=== PATIENT | female | born 1970 | race Caucasian/White ===

== ENCOUNTER 2017-05-17 17:07 | Inpatient (IN) | payer OTHER ==
[~2017-05-17] VITALS: Ht 157.5 cm; Wt 46.5 kg
--- NOTE | ~2017-05-17 | EKG ---
[address] [address] ELECTROCARDIOGRAM REPORT Name: ITZEL RODRIGEZ Room #: 543-P ADM IN M.R.#: [id number] Admission: 05/17/17 Attend Phys: Alberto Eldridge MD Discharge: Date of : 68 Report #: [id number] THIS REPORT FOR: //name// [facility] ED Test Date: 2017-05-17 Test Time: 17:43:15 Pat Name: ITZEL RODRIGEZ Department: Room: [facility] Gender: F Deli Cook: Lupe ROWELL : 1970 Requested By: Marilee Chávez Order Number: [id number] MD: Dominik Patel Measurements Intervals [place] Rate: 103 P: 51 [place]: 146 QRS: 43 QRSD: 78 T: QT: 319 QTc: 418 Interpretive Statements Sinus tachycardia Nonspecific T abnrm, anterolateral leads Compared to ECG 09/27/2015 17:23:53 Nonspecific change in the ST and T-wave segments Electronically Signed On 05-18-2017 10:10:27 CDT by Dominik Patel [email or web address] <ELECTRONICALLY SIGNED> By: Dominik Patel MD, [facility] 05/18/17 1010 1743 1743 Dominik Patel MD, [facility] /EPI
[~2017-05-17 17:07] MED LIST: ADDERALL 30 MG30 MG PO; ANTIVERT25 M1 PO; ATIVAN2 MG; ATIVAN2 MG PO; CABERGOLINE 0.0.5 M1 PO; CLONAZEPAM 1 MG1 M1; CLONAZEPAM 1 MG1 M1 PO; GABAPENTIN100 MG; LATUDA120 MG PO; LATUDA80 MG PO; LEXAPRO20 MG PO; SEROQUEL 50 MG50 MG PO; SEROQUEL XR150 MG; TOPAMAX 100 MG100 MG PO; ULTRAM ER100 MG PO; VISTARIL 25 MG25 M1 PO; VYVANSE70 MG PO
[2017-05-17 17:08] VITALS: BP 123/84
[2017-05-17 17:34] LABS: ABSOLUTE NEUTROPHILS 3.2 thou/uL (1.4-8.2); BASOPHILS 0.4 % (0.0-2.0); EOSINOPHILS 0.2 % (0.0-3.0); HEMATOCRIT 40.9 % (37.0-47.0); HEMOGLOBIN 14.1 gm/dL (12.0-15.0); LYMPHOCYTES 28.9 % (24.0-44.0); MCH 31.3 pg (26.0-34.0); MCHC 34.5 g/dL (28.0-37.0); MCV 90.9 fL (80.0-100.0); MONOCYTES 6.1 % (1.0-8.0); PLATELET COUNT 200 thou/uL (150-400); POLYS 64.4 % (36.0-66.0); RDW 12.8 % (10.5-14.5); WBC 4.9 thou/uL (4.0-11.0)
[2017-05-17 17:36] LABS: MANUAL DIFF NO
[2017-05-17 17:42] LABS: ANION GAP 11 mmol/L (7-16); BUN 4 mg/dL (7-18); CALCIUM 9.9 mg/dL (8.5-10.1); CHLORIDE 99 mmol/L (98-107); CO2 24 mmol/L (21-32); CREATININE 0.7 mg/dL (0.6-1.0); GLUCOSE 142 mg/dL (74-106); POTASSIUM 3.5 mmol/L (3.5-5.1); SODIUM 134 mmol/L (136-145)
[2017-05-17 17:49] LABS: ALBUMIN 4.6 g/dL (3.4-5.0); ALKALINE PHOSPHATASE 43 U/L (46-116); SGOT 23 U/L (15-37); SGPT 19 U/L (30-65); TOTAL BILIRUBIN 0.5 mg/dL (<0.1-1.0); TROPONIN-I < 0.04 ng/mL (<0.04-0.07)
[2017-05-17 18:54] LABS: URINE BILIRUBIN NEGATIVE (Negative); URINE BLOOD NEGATIVE (Negative); URINE COLOR YELLOW; URINE GLUCOSE-RANDOM* NEGATIVE (Negative); URINE KETONES NEGATIVE (Negative); URINE NITRITE NEGATIVE (Negative); URINE PROTEIN (DIPSTICK) NEGATIVE (Negative); URINE SPECIFIC GRAVITY <= 1.005 (1.003-1.035); URINE UROBILINOGEN 0.2 E.U./dl (0.2-1.0)
[2017-05-17] MEDS ORDERED: IRON325 PO (19:11)
[2017-05-17] MEDS ORDERED: MIRALAX17 GM PO (19:13)
[2017-05-17] MEDS ORDERED: IMITREX100 MG PO (19:14)
[2017-05-17] MEDS ORDERED: PRISTIQ50 M1 PO (19:15)
[2017-05-17] MEDS ORDERED: PROTONIX40 M4 PO (19:15)
[2017-05-17] MEDS ORDERED: PHENERGAN 25 MG25 M1 PO (19:17)
[2017-05-17] MEDS ORDERED: TRAZODONE 150150 M1 PO (19:52)
[2017-05-17] MEDS ORDERED: RESTORIL30 MG PO (19:53)
[2017-05-17 19:54] VITALS: BP 112/79
[2017-05-17 20:10] VITALS: BP 114/79
[2017-05-18 01:12] LABS: AMP/METHAMP POSITIVE (Negative); BARBITURATES Negative (Negative); BENZODIAZEPINES POSITIVE (Negative); COCAINE Negative (Negative); METHADONE Negative (Negative); OPIATES Negative (Negative); PCP Negative (Negative); THC Negative (Negative)
[2017-05-18 03:14] VITALS: BP 118/73
[2017-05-18 07:34] VITALS: BP 104/64
[2017-05-18 16:10] VITALS: BP 95/55
[2017-05-18] MEDS ORDERED: LATUDA80 MG PO (18:35)
[2017-05-18 19:49] VITALS: BP 96/64
[2017-05-19 05:18] VITALS: BP 83/48
[2017-05-19 07:35] VITALS: BP 90/44
[2017-05-19 11:50] VITALS: BP 103/65
[2017-05-19 15:50] VITALS: BP 120/74
[2017-05-19 19:28] VITALS: BP 114/61
[2017-05-20 05:17] LABS: CALCIUM 8.9 mg/dL (8.5-10.1); CREATININE 0.6 mg/dL (0.6-1.0); POTASSIUM 3.9 mmol/L (3.5-5.1)
[2017-05-20 07:40] VITALS: BP 108/67
[2017-05-20] MEDS ORDERED: DULCOLAX5 MG PO (11:54)
[2017-05-20] MEDS ORDERED: CITRATE OF MAG300 ML PO (11:56)
[2017-05-20 12:04] VITALS: BP 108/67
== END 2017-05-20 14:25 | disposition home or self-care (01) | DRG 389 ==
LOC: ER 17:07 → 5S 18:59 → EROBS 18:59 → 5S 19:54
PROVIDERS: Internal Medicine Endocrinology, Diabetes & Metabolism; Nurse Practitioner Acute Care; Nurse Practitioner Family
DX: K56.60 Unspecified intestinal obstruction (principal); E87.1 Hypo-osmolality and hyponatremia; K20.9 Esophagitis, unspecified; K56.7 Ileus, unspecified; K59.09 Other constipation; F41.8 Other specified anxiety disorders; G47.00 Insomnia, unspecified; F31.9 Bipolar disorder, unspecified; G89.29 Other chronic pain; G43.909 Migraine, unspecified, not intractable, without status migrainosus; F90.9 Attention-deficit hyperactivity disorder, unspecified type; Z79.899 Other long term (current) drug therapy; Z90.710 Acquired absence of both cervix and uterus; Z88.6 Allergy status to analgesic agent; Z91.14 Patient's other noncompliance with medication regimen; Z90.49 Acquired absence of other specified parts of digestive tract
CPT/HCPCS: 10086

== ENCOUNTER 2017-05-24 11:37 | Emergency (ER) | payer OTHER ==
[~2017-05-24] VITALS: Ht 157.5 cm; Wt 47.6 kg
[~2017-05-24 11:37] MED LIST changes: +CITRATE OF MAG300 ML PO; +DULCOLAX5 MG PO; +IMITREX100 MG PO; +IRON325 PO; +MIRALAX17 GM PO; +PHENERGAN 25 MG25 M1 PO; +PRISTIQ50 M1 PO; +PROTONIX40 M4 PO; +RESTORIL30 MG PO; +TRAZODONE 150150 M1 PO
[2017-05-24 12:24] LABS: URINE BILIRUBIN NEGATIVE (Negative); URINE BLOOD NEGATIVE (Negative); URINE COLOR YELLOW; URINE GLUCOSE-RANDOM* NEGATIVE (Negative); URINE KETONES NEGATIVE (Negative); URINE LEUKOCYTES-REFLEX NEGATIVE (Negative); URINE PROTEIN (DIPSTICK) NEGATIVE (Negative); URINE SPECIFIC GRAVITY <= 1.005 (1.003-1.035); URINE UROBILINOGEN 0.2 E.U./dl (0.2-1.0)
[2017-05-24 12:25] LABS: ABSOLUTE NEUTROPHILS 1.6 thou/uL (1.4-8.2); BASOPHILS 0.8 % (0.0-2.0); EOSINOPHILS 1.6 % (0.0-3.0); HEMATOCRIT 43.1 % (37.0-47.0); HEMOGLOBIN 14.7 gm/dL (12.0-15.0); LYMPHOCYTES 42.4 % (24.0-44.0); MCH 31.3 pg (26.0-34.0); MCV 92.1 fL (80.0-100.0); MONOCYTES 6.9 % (1.0-8.0); PLATELET COUNT 211 thou/uL (150-400); POLYS 48.3 % (36.0-66.0); RBC 4.68 mil/uL (4.20-5.00); RDW 13.4 % (10.5-14.5); WBC 3.4 thou/uL (4.0-11.0)
[2017-05-24 12:26] LABS: MANUAL DIFF NO
[2017-05-24 12:30] LABS: CREATININE 0.8 mg/dL (0.6-1.0); POTASSIUM 4.3 mmol/L (3.5-5.1)
[2017-05-24 12:34] LABS: ALBUMIN 4.1 g/dL (3.4-5.0); TOTAL BILIRUBIN 0.5 mg/dL (<0.1-1.0); TOTAL PROTEIN 6.8 g/dL (6.4-8.2)
== END 2017-05-24 14:58 | disposition home or self-care (01) ==
LOC: ER 11:37
PROVIDERS: Emergency Medicine
DX: G89.29 Other chronic pain (principal); R10.9 Unspecified abdominal pain; F41.9 Anxiety disorder, unspecified; F31.9 Bipolar disorder, unspecified; Z90.710 Acquired absence of both cervix and uterus; Z88.5 Allergy status to narcotic agent; Z88.4 Allergy status to anesthetic agent

== ENCOUNTER 2017-06-05 16:30 | Emergency (ER) | payer OTHER ==
[~2017-06-05] VITALS: Ht 157.5 cm; Wt 48.5 kg
[2017-06-05 17:15] LABS: ABSOLUTE NEUTROPHILS 2.2 thou/uL (1.4-8.2); BASOPHILS 0.7 % (0.0-2.0); EOSINOPHILS 0.2 % (0.0-3.0); HEMATOCRIT 40.5 % (37.0-47.0); HEMOGLOBIN 13.9 gm/dL (12.0-15.0); LYMPHOCYTES 33.4 % (24.0-44.0); MCH 31.7 pg (26.0-34.0); MCHC 34.3 g/dL (28.0-37.0); MCV 92.6 fL (80.0-100.0); MONOCYTES 6.9 % (1.0-8.0); PLATELET COUNT 264 thou/uL (150-400); POLYS 58.8 % (36.0-66.0); RBC 4.37 mil/uL (4.20-5.00); RDW 13.4 % (10.5-14.5); WBC 3.8 thou/uL (4.0-11.0)
[2017-06-05 17:19] LABS: MANUAL DIFF NO
[2017-06-05 17:36] LABS: ALBUMIN 4.1 g/dL (3.4-5.0); CALCIUM 10.1 mg/dL (8.5-10.1); CREATININE 0.9 mg/dL (0.6-1.0); DIRECT BILIRUBIN 0.1 mg/dL (<0.1-0.3); POTASSIUM 3.2 mmol/L (3.5-5.1); TOTAL BILIRUBIN 0.5 mg/dL (<0.1-1.0); TOTAL PROTEIN 6.5 g/dL (6.4-8.2)
[2017-06-05 17:48] LABS: URINE BILIRUBIN NEGATIVE (Negative); URINE BLOOD NEGATIVE (Negative); URINE COLOR YELLOW; URINE GLUCOSE-RANDOM* NEGATIVE (Negative); URINE KETONES NEGATIVE (Negative); URINE NITRITE NEGATIVE (Negative); URINE PROTEIN (DIPSTICK) NEGATIVE (Negative); URINE SPECIFIC GRAVITY <= 1.005 (1.003-1.035); URINE UROBILINOGEN 0.2 E.U./dl (0.2-1.0)
== END 2017-06-05 18:50 | disposition home or self-care (01) ==
LOC: ER 16:30
PROVIDERS: Emergency Medicine
DX: K56.7 Ileus, unspecified (principal); E87.6 Hypokalemia; G89.29 Other chronic pain; F41.9 Anxiety disorder, unspecified; F31.9 Bipolar disorder, unspecified; Z90.710 Acquired absence of both cervix and uterus; Z88.5 Allergy status to narcotic agent; Z88.4 Allergy status to anesthetic agent

== ENCOUNTER 2017-08-27 15:01 | Emergency (ER) | payer OTHER ==
[~2017-08-27] VITALS: Ht 157.5 cm; Wt 47.6 kg
--- NOTE | ~2017-08-27 | EKG ---
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: THOR : 1970 Requested By: Taylor Fall Order Number: [id number] MD: Dominik Patel Measurements Intervals [place] Rate: 84 P: 54 PA: 138 QRS: 48 QRSD: 78 T: 44 QT: 382 QTc: 452 Interpretive Statements Sinus rhythm No significant abnormality Compared to ECG 05/17/2017 17:43:15 Sinus tachycardia no longer present Nonspecific ST and T wave abnormality no longer present Electronically Signed On 08-27-2017 17:20:43 CDT by Dominik Patel [email or web address] <ELECTRONICALLY SIGNED> By: Dominik Patel MD, [facility] 08/27/17 1720 1518 1518 Dominik Patel MD, [facility] /EPI
[2017-08-27 15:22] LABS: URINE BILIRUBIN NEGATIVE (Negative); URINE BLOOD NEGATIVE (Negative); URINE COLOR YELLOW; URINE GLUCOSE-RANDOM* NEGATIVE (Negative); URINE KETONES NEGATIVE (Negative); URINE NITRITE NEGATIVE (Negative); URINE PROTEIN (DIPSTICK) NEGATIVE (Negative); URINE SPECIFIC GRAVITY <= 1.005 (1.003-1.035); URINE UROBILINOGEN 0.2 E.U./dl (0.2-1.0)
[2017-08-27] MEDS ORDERED: AMITIZA8 MCG PO (15:57)
[2017-08-27 16:15] LABS: ABSOLUTE NEUTROPHILS 2.5 thou/uL (1.4-8.2); BASOPHILS 0.7 % (0.0-2.0); HEMATOCRIT 37.4 % (37.0-47.0); HEMOGLOBIN 12.8 gm/dL (12.0-15.0); LYMPHOCYTES 35.6 % (24.0-44.0); MCH 32.6 pg (26.0-34.0); MCHC 34.3 g/dL (28.0-37.0); MCV 94.8 fL (80.0-100.0); MONOCYTES 6.4 % (1.0-8.0); PLATELET COUNT 220 thou/uL (150-400); POLYS 56.3 % (36.0-66.0); RBC 3.94 mil/uL (4.20-5.00); RDW 12.1 % (10.5-14.5); WBC 4.4 thou/uL (4.0-11.0)
[2017-08-27 16:16] LABS: MANUAL DIFF NO
[2017-08-27 16:24] LABS: CALCIUM 9.8 mg/dL (8.5-10.1); CREATININE 0.9 mg/dL (0.6-1.0); POTASSIUM 3.9 mmol/L (3.5-5.1)
[2017-08-27 16:30] LABS: ALBUMIN 3.8 g/dL (3.4-5.0); TOTAL BILIRUBIN 0.3 mg/dL (<0.1-1.0); TOTAL PROTEIN 6.2 g/dL (6.4-8.2)
== END 2017-08-27 16:39 | disposition left against medical advice (07) ==
LOC: ER 15:01
PROVIDERS: Physician Assistant
DX: R11.0 Nausea (principal); F15.90 Other stimulant use, unspecified, uncomplicated; F32.9 Major depressive disorder, single episode, unspecified; F41.9 Anxiety disorder, unspecified; G89.29 Other chronic pain; R10.9 Unspecified abdominal pain; Z90.710 Acquired absence of both cervix and uterus; Z88.5 Allergy status to narcotic agent

== ENCOUNTER 2018-07-07 10:54 | Emergency (ER) | payer OTHER ==
[~2018-07-07] VITALS: Ht 157.5 cm; Wt 59.0 kg
[~2018-07-07 10:54] MED LIST changes: +AMITIZA8 MCG PO; +ATIVAN0.5 MG PO
[2018-07-07] MEDS ORDERED: QUETIAPINE FUM400 MG PO (11:25)
[2018-07-07] MEDS ORDERED: ANTIVERT25 MG PO (11:25)
[2018-07-07] MEDS ORDERED: TOPAMAX50 MG PO (11:26)
[2018-07-07] MEDS ORDERED: ZOFRAN ODT4 MG PO (11:36)
[2018-07-07] MEDS ORDERED: PHENERGAN 25 MG25 M1 PO (11:36)
[2018-07-07 11:39] LABS: ABSOLUTE NEUTROPHILS 2.3 thou/uL (1.4-8.2); BASOPHILS 0.6 % (0.0-2.0); EOSINOPHILS 1.9 % (0.0-3.0); HEMATOCRIT 38.5 % (37.0-47.0); HEMOGLOBIN 12.9 gm/dL (12.0-15.0); LYMPHOCYTES 33.2 % (24.0-44.0); MCH 29.5 pg (26.0-34.0); MCHC 33.5 g/dL (28.0-37.0); MCV 87.9 fL (80.0-100.0); MONOCYTES 4.7 % (1.0-8.0); PLATELET COUNT 194 thou/uL (150-400); POLYS 59.6 % (36.0-66.0); RBC 4.37 mil/uL (4.20-5.00); RDW 15.7 % (10.5-14.5); WBC 3.8 thou/uL (4.0-11.0)
[2018-07-07 11:50] LABS: URINE BILIRUBIN NEGATIVE (Negative); URINE BLOOD NEGATIVE (Negative); URINE CLARITY CLEAR; URINE COLOR YELLOW; URINE GLUCOSE-RANDOM* NEGATIVE (Negative); URINE KETONES NEGATIVE (Negative); URINE LEUKOCYTES NEGATIVE (Negative); URINE NITRITE NEGATIVE (Negative); URINE PROTEIN (DIPSTICK) NEGATIVE (Negative); URINE SPECIFIC GRAVITY <= 1.005 (1.005-1.035); URINE UROBILINOGEN 0.2 E.U./dl (0.2-1.0)
[2018-07-07 11:55] LABS: CREATININE 1.3 mg/dL (0.6-1.0); POTASSIUM 3.7 mmol/L (3.5-5.1)
[2018-07-07 12:00] LABS: DIRECT BILIRUBIN < 0.1 mg/dL (<0.1-0.3); SGOT 18 U/L (15-37); SGPT 21 U/L (30-65); TOTAL BILIRUBIN 0.2 mg/dL (<0.1-1.0); TOTAL PROTEIN 6.7 g/dL (6.4-8.2)
== END 2018-07-07 12:33 | disposition home or self-care (01) ==
LOC: ER 10:54
PROVIDERS: Emergency Medicine
DX: R42 Dizziness and giddiness (principal); R11.0 Nausea; F41.9 Anxiety disorder, unspecified; R53.1 Weakness; F31.9 Bipolar disorder, unspecified; G47.00 Insomnia, unspecified; R10.9 Unspecified abdominal pain; G89.29 Other chronic pain; Z90.710 Acquired absence of both cervix and uterus; Z88.5 Allergy status to narcotic agent; Z88.8 Allergy status to other drugs, medicaments and biological substances

== ENCOUNTER 2018-11-03 07:26 | Emergency (ER) | payer OTHER ==
[~2018-11-03] VITALS: Ht 157.5 cm; Wt 54.4 kg
[~2018-11-03 07:26] MED LIST changes: +ANTIVERT25 MG PO; +QUETIAPINE FUM400 MG PO; +TOPAMAX50 MG PO; +ZOFRAN ODT4 MG PO
[2018-11-03] MEDS ORDERED: REGLAN 10 MG TA10 MG PO (10:01)
[2018-11-03 10:44] VITALS: BP 127/77
== END 2018-11-03 10:52 | disposition home or self-care (01) ==
LOC: ER 07:26
DX: R51 Headache (principal); R11.0 Nausea; F41.9 Anxiety disorder, unspecified; G47.00 Insomnia, unspecified; F31.9 Bipolar disorder, unspecified; G89.29 Other chronic pain; R10.9 Unspecified abdominal pain; Z90.710 Acquired absence of both cervix and uterus

== ENCOUNTER 2018-11-21 12:19 | Emergency (ER) | payer OTHER ==
[~2018-11-21] VITALS: Ht 157.5 cm; Wt 54.4 kg
[~2018-11-21 12:19] MED LIST changes: +REGLAN 10 MG TA10 MG PO
[2018-11-21] MEDS ORDERED: TRAMADOL 50 MG50 MG PO (14:28)
[2018-11-21 15:27] VITALS: BP 123/76
== END 2018-11-21 15:27 | disposition home or self-care (01) ==
LOC: ER 12:19
DX: M50.322 Other cervical disc degeneration at C5-C6 level (principal); M50.323 Other cervical disc degeneration at C6-C7 level; G43.909 Migraine, unspecified, not intractable, without status migrainosus; F41.9 Anxiety disorder, unspecified; G47.00 Insomnia, unspecified; F31.9 Bipolar disorder, unspecified; G89.29 Other chronic pain; R10.9 Unspecified abdominal pain; Z90.710 Acquired absence of both cervix and uterus

== ENCOUNTER 2018-11-23 17:02 | Emergency (ER) | payer OTHER ==
[~2018-11-23] VITALS: Ht 157.5 cm; Wt 54.4 kg
[~2018-11-23 17:02] MED LIST changes: +TRAMADOL 50 MG50 MG PO
[2018-11-23 17:19] VITALS: BP 113/74
[2018-11-23] MEDS ORDERED: PREDNISONE 10 M10 MG PO (17:33)
[2018-11-23] MEDS ORDERED: ZANAFLEX4 MG PO (17:33)
== END 2018-11-23 17:38 | disposition home or self-care (01) ==
LOC: ER 17:02
DX: G44.209 Tension-type headache, unspecified, not intractable (principal); S29.012A Strain of muscle and tendon of back wall of thorax, initial encounter; F41.9 Anxiety disorder, unspecified; F31.9 Bipolar disorder, unspecified; G47.00 Insomnia, unspecified; R10.9 Unspecified abdominal pain; G89.29 Other chronic pain; Z90.710 Acquired absence of both cervix and uterus; X58.XXXA Exposure to other specified factors, initial encounter; Y93.89 Activity, other specified; Y92.89 Other specified places as the place of occurrence of the external cause; Y99.8 Other external cause status

== ENCOUNTER 2018-12-05 12:02 | Emergency (ER) | payer OTHER ==
[~2018-12-05] VITALS: Ht 157.5 cm; Wt 56.7 kg
[~2018-12-05 12:02] MED LIST changes: +PREDNISONE 10 M10 MG PO; +ZANAFLEX4 MG PO
[2018-12-05 13:04] LABS: BASOPHILS 0.5 % (0.0-2.0); EOSINOPHILS 0.4 % (0.0-3.0); HEMATOCRIT 44.7 % (37.0-47.0); HEMOGLOBIN 15.3 gm/dL (12.0-15.0); LYMPHOCYTES 11.9 % (24.0-44.0); MCH 31.3 pg (26.0-34.0); MCHC 34.2 g/dL (28.0-37.0); MCV 91.5 fL (80.0-100.0); MONOCYTES 2.7 % (1.0-8.0); PLATELET COUNT 289 thou/uL (150-400); POLYS 84.5 % (36.0-66.0); RBC 4.89 mil/uL (4.20-5.00); RDW 16.2 % (10.5-14.5); WBC 9.5 thou/uL (4.0-11.0)
[2018-12-05 13:04] LABS: URINE BILIRUBIN NEGATIVE (Negative); URINE BLOOD NEGATIVE (Negative); URINE CLARITY CLEAR; URINE COLOR YELLOW; URINE GLUCOSE-RANDOM* NEGATIVE (Negative); URINE KETONES NEGATIVE (Negative); URINE NITRITE-REFLEX NEGATIVE (Negative); URINE PROTEIN (DIPSTICK) NEGATIVE (Negative); URINE UROBILINOGEN 0.2 E.U./dl (0.2-1.0)
[2018-12-05 13:07] LABS: AMP/METHAMP Negative (Negative); BARBITURATES Negative (Negative); BENZODIAZEPINES POSITIVE (Negative); COCAINE Negative (Negative); METHADONE Negative (Negative); OPIATES Negative (Negative); PCP Negative (Negative)
[2018-12-05 13:17] LABS: URINE LEUKOCYTES-REFLEX NEGATIVE (Negative)
[2018-12-05 13:18] LABS: PROTIME 10.5 Seconds (9.3-11.4)
[2018-12-05 13:19] LABS: BE(vivo) -1.7 mmol/L (-2 to +3); HCO3 23.2 mmol/L (22.0-26.0); PCO2 40.1 mmHg (35.0-45.0); sO2 96.4 % (92.0-98.0)
[2018-12-05 14:31] LABS: ANION GAP 7 mmol/L (7-16); BUN 13 mg/dL (7-18); CALCIUM 9.1 mg/dL (8.5-10.1); CHLORIDE 106 mmol/L (98-107); CO2 28 mmol/L (21-32); CREATININE 0.9 mg/dL (0.6-1.0); GLUCOSE 124 mg/dL (74-106); POTASSIUM 4.1 mmol/L (3.5-5.1); SODIUM 141 mmol/L (136-145)
[2018-12-05 14:35] LABS: PHOSPHORUS 2.8 mg/dL (2.5-4.9); SALICYLATE < 2.8 mg/dL (2.8-20.0); SGOT 62 U/L (15-37); SGPT 80 U/L (30-65); TOTAL BILIRUBIN 0.4 mg/dL (<0.1-1.0); TOTAL PROTEIN 6.6 g/dL (6.4-8.2)
[2018-12-05] MEDS ORDERED: KLONOPIN1 MG PO (15:05)
[2018-12-05 15:39] VITALS: BP 122/76
--- NOTE | 2018-12-07 21:47 | EKG ---
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
== END 2018-12-05 15:42 | disposition home or self-care (01) ==
LOC: ER 12:02
PROVIDERS: Physician Assistant
DX: T42.4X2A Poisoning by benzodiazepines, intentional self-harm, initial encounter (principal); T39.1X2A Poisoning by 4-Aminophenol derivatives, intentional self-harm, initial encounter; F32.9 Major depressive disorder, single episode, unspecified; R45.851 Suicidal ideations; R42 Dizziness and giddiness; R51 Headache; R53.1 Weakness; R11.0 Nausea; G47.00 Insomnia, unspecified; F41.9 Anxiety disorder, unspecified; G89.29 Other chronic pain; R10.9 Unspecified abdominal pain; Z90.710 Acquired absence of both cervix and uterus

== ENCOUNTER 2019-08-24 20:52 | Emergency (ER) | payer OTHER ==
[~2019-08-24] VITALS: Ht 157.5 cm; Wt 68.0 kg
[~2019-08-24 20:52] MED LIST changes: +KLONOPIN1 MG PO
[2019-08-24 21:56] LABS: ABSOLUTE NEUTROPHILS 4.4 thou/uL (1.4-8.2); BASOPHILS 0.3 % (0.0-2.0); EOSINOPHILS 1.4 % (0.0-3.0); HEMATOCRIT 37.8 % (37.0-47.0); HEMOGLOBIN 12.5 gm/dL (12.0-15.0); LYMPHOCYTES 17.5 % (24.0-44.0); MCH 30.9 pg (26.0-34.0); MCHC 33.2 g/dL (28.0-37.0); MCV 93.2 fL (80.0-100.0); MONOCYTES 3.8 % (1.0-8.0); PLATELET COUNT 201 thou/uL (150-400); RBC 4.05 mil/uL (4.20-5.00); RDW 13.6 % (10.5-14.5); WBC 5.7 thou/uL (4.0-11.0)
[2019-08-24 22:09] LABS: ANION GAP 6 mmol/L (7-16); BUN 8 mg/dL (7-18); CALCIUM 8.7 mg/dL (8.5-10.1); CHLORIDE 96 mmol/L (98-107); CO2 29 mmol/L (21-32); CREATININE 0.8 mg/dL (0.6-1.0); GLUCOSE 154 mg/dL (74-106); POTASSIUM 4.1 mmol/L (3.5-5.1); SODIUM 131 mmol/L (136-145)
[2019-08-24 22:17] VITALS: BP 152/89
[2019-08-24 22:20] LABS: ALBUMIN 3.6 g/dL (3.4-5.0); LIPASE 126 U/L (73-393); MAGNESIUM 1.7 mg/dL (1.8-2.4); SGOT 19 U/L (15-37); SGPT 10 U/L (30-65); TOTAL BILIRUBIN 0.2 mg/dL (<0.1-1.0); TOTAL PROTEIN 6.7 g/dL (6.4-8.2); TROPONIN-I <0.06 ng/mL (<0.06)
[2019-08-24 22:33] LABS: SALICYLATE < 2.8 mg/dL (2.8-20.0)
[2019-08-24 23:15] LABS: URINE BILIRUBIN NEGATIVE (Negative); URINE BLOOD NEGATIVE (Negative); URINE CLARITY CLEAR; URINE COLOR YELLOW; URINE GLUCOSE-RANDOM* NEGATIVE (Negative); URINE KETONES NEGATIVE (Negative); URINE LEUKOCYTES-REFLEX TRACE (Negative); URINE NITRITE-REFLEX NEGATIVE (Negative); URINE PROTEIN (DIPSTICK) NEGATIVE (Negative); URINE SPECIFIC GRAVITY <= 1.005 (1.005-1.035); URINE UROBILINOGEN 0.2 E.U./dl (0.2-1.0)
[2019-08-24 23:27] LABS: AMP/METHAMP Negative (Negative); BARBITURATES Negative (Negative); BENZODIAZEPINES Negative (Negative); COCAINE Negative (Negative); METHADONE Negative (Negative); OPIATES Negative (Negative); PCP Negative (Negative)
--- NOTE | 2019-08-26 07:57 | EKG ---
[address] [address] ELECTROCARDIOGRAM REPORT Name: ITZEL RODRIGEZ [facility] [id number] Admission: 08/24/19 Attend Phys: Discharge: 08/24/19 Date of : 68 Report #: [id number] THIS REPORT FOR: //name// [facility] ED Test Date: 2019-08-24 Test Time: 22:14:14 Pat Name: ITZEL RODRIGEZ Department: Room: Gender: F Primary Therapist: : 1970 Requested By: Jeffery Christianson Order Number: [id number] MD: Lemuel Wong Measurements Intervals [place] Rate: 51 P: 27 [place]: 155 QRS: 19 QRSD: 96 T: 31 QT: 473 QTc: 436 Interpretive Statements Sinus rhythm Compared to ECG 12/05/2018 13:03:59 No significant changes Electronically Signed On 08-26-2019 7:57:18 CDT by Lemuel Wong [email or web address] <ELECTRONICALLY SIGNED> By: Lemuel Wong MD 08/26/19 0757 2214 2214 MD BABATUNDE Santos
== END 2019-08-24 23:21 | disposition home or self-care (01) ==
LOC: ER 20:52
PROVIDERS: Emergency Medicine
DX: T50.905A Adverse effect of unspecified drugs, medicaments and biological substances, initial encounter (principal); K59.00 Constipation, unspecified; R11.2 Nausea with vomiting, unspecified; F41.9 Anxiety disorder, unspecified; F31.9 Bipolar disorder, unspecified; R10.9 Unspecified abdominal pain; G89.29 Other chronic pain; R63.0 Anorexia; Z68.27 Body mass index [BMI] 27.0-27.9, adult; Z90.710 Acquired absence of both cervix and uterus; X58.XXXA Exposure to other specified factors, initial encounter